=== PATIENT | male | born 1960 | race Caucasian/White ===

== ENCOUNTER 2016-12-19 11:57 | Emergency (ER) | payer OTHER ==
[2016-12-19 12:11] LABS: COLOR YELLOW; LEUKOCYTE ESTERASE,URINE NEGATIVE (NEGATIVE); NITRITE,URINE NEGATIVE (NEGATIVE); PH,URINE 5.5 (5.0-7.5)
[2016-12-19 12:26] LABS: BACTERIA 1+ /hpf (NONE SEEN); MUCUS 1+ /lpf (NONE-1+)
[2016-12-19] MEDS ORDERED: NS 1,000 ML IV ONE (13:19)
--- NOTE | 2016-12-19 13:25 | UCPHY ---
H & P Patient Type: New Chief Complaint Nursing Narrative: LEFT FLANK PAIN STARTED LAST MONDAY, INTERMITTENT INTENSE PAIN, N/V. SEEN AT ON MONDAY AND TRACE BLOOD SEEN IN URINE, DX WITH POSSIBLE KIDNEY STONE. Time Seen by Provider: 12/19/16 12:59 HPI/ROS: This patient complains of left flank pain. He describes onset in the morning with varying degrees of severity but up to 9/10 intensity associated with vomiting on Monday, 3 days prior to arrival. He visit an outlying urgent care clinic where he is found have trace hematuria prescribed Naprosyn and methocarbamol with partial improvement in terms of the pain control but still ongoing symptoms. He has not had any vomiting over the past 2 days has ongoing waxing waning flank pain with no clear exacerbating or alleviating factors. He reports the pain seems to radiate to the left lower quadrant of his belly. His not recalling have this type of pain before. ROS: No fevers or chills. No other constitutional symptoms. HEENT: No complaints pulmonary: No complaints cardiovascular: No lightheadedness GI: Normal bowel movements. : No testicular pain or swelling. No dysuria. 10 point ROS is otherwise negative. Source: Patient, Family (His also provides history.) Exam Limitations: No limitations - Medical/Surgical History PMH: GERD Abdominal hernia with repair Other PMH: GERD, HIGH CHOLESTROL, KIDNEY STONES, BILATERL KNEE SURG, HERNIA REPAIR, LEFT ARM SURG, VOCAL CORD REPAIR - Family History Significant Family History: No pertinent family hx - Social History Smoking Status: Never smoked Alcohol Use: Occasionally Drug Use: None - Physical Exam Exam: General Appearance: Alert, no distress. Eyes: Pupils equal and round no pallor or injection. ENT, Mouth: Mucous membranes moist. Respiratory: There are no retractions, lungs are clear to auscultation. Cardiovascular: Regular rate and rhythm. Gastrointestinal: Abdomen is soft and nontender, no masses, bowel sounds normal. : Mild left epididymal tenderness. No testicular swelling. No urethral discharge. Back: Mild left lateral flank tenderness to percussion. No midline back pain or muscle spasm noted. Neurological: Alert with no focal deficits. Skin: Warm and dry, no rashes. Musculoskeletal: Neck is supple nontender. Extremities are symmetrical, full range of motion. Psychiatric: Mood and affect normal. DIFFERENTIAL DIAGNOSIS: After history and physical exam differential diagnosis was considered for ureteral stone, pyelonephritis, prostatitis, low back strain , viral illness Constitutional: Initial Vital Signs Temperature (C) 36.9 C 12/19/16 12:10 Heart Rate 58 L 12/19/16 12:10 Respiratory Rate 18 12/19/16 12:10 Blood Pressure 124/82 H 12/19/16 12:10 O2 Sat (%) 95 12/19/16 12:10 O2 Delivery Mode Room Air Allergies/Adverse Reactions: isotretinoin [From Accutane] Allergy (Verified 12/19/16 12:19) Home Medications: Medication Instructions Recorded Ondansetron Odt [Zofran Odt] 4 - 8 mg PO Q4PRN PRN #4 tab 12/19/16 Protonix 12/19/16 Simvastatin 12/19/16 Tamsulosin HCl [Flomax 0.4 MG (*)] 0.4 mg PO DAILY #10 cap 12/19/16 oxyCODONE/APAP 5/325 [Percocet 1 - 2 tab PO Q4-6PRN PRN #20 tab 12/19/16 5/325 (*)] Medical Decision Making ED Course/Re-evaluation: IV normal saline bolus Toradol and Zofran with relief Flomax p. o. I reviewed the patient's labs-UA with hematuria and minimal pyuria but no bacteria. Normal CBC and basic metabolic panel I counseled patient regarding ureteral stone. His CT also revealed two small hepatic lesions that will require follow-up imaging in a counseled the patient regarding this. Discussion: Given the relatively small size of this current ureteral stone I suspect this patient will be able to pass as an outpatient. I counseled regarding this. I did provide urology follow-up in case he is not documenting passage of the stone with filtering the urine at home. He also understands the need to have follow-up with his primary care physician to arrange for imaging of the to liver lesions. I also spoke with CORNELIUS Lowe at Dr. Marcus's (PCP) office relating the patient' s need for f/u hepatic imaging with MRI w & w/o contrast as an oupatient. - Data Points Laboratory Results: Laboratory Results 12/19/16 13:40 12/19/16 13:40 Microbiology Results: MICROBIOLOGY 12/19/16 12:27 Urine,Clean Catch Urine Culture - Preliminary Medications Given: Discontinued Medications Sodium Chloride (Ns) 1,000 mls @ 0 mls/hr IV ONCE ONE PRN Reason: Wide Open Stop: 12/19/16 13:20 Last Admin: 12/19/16 13:40 Dose: 1,000 mls Ketorolac Tromethamine (Toradol) 30 mg IVP EDNOW ONE Stop: 12/19/16 13:59 Last Admin: 12/19/16 14:05 Dose: 30 mg Tamsulosin HCl (Flomax) 0.4 mg PO EDNOW ONE Stop: 12/19/16 13:58 Last Admin: 12/19/16 14:05 Dose: 0.4 mg Departure - Departure Disposition: Home, Routine, Self-Care Clinical Impression: Ureteral stone with hydronephrosis, Liver lesion Condition: Good Instructions: Ureteral Stones (ED) Additional Instructions: Plan: Drink plenty fluids Ibuprofen or naproxen anti-inflammatory for pain Tylenol or Percocet in addition if needed. No driving, alcohol or come Percocet Flomax Call the urologist, Dr. Mijares to arrange follow-up appointment for further evaluation Filter your urine to document passage of the stone. Cancel urology appointment if you're able to pass the stone. Call your primary care physician to arrange an outpatient MRI with and without contrast for further evaluation of 2 spots on your liver. Go to the emergency department for any significant worsening despite the treatment plan. Referrals: New Mijares MD [Medical Doctor] - As per Instructions Daron Reese MD, FACG [Medical Doctor] - As per Instructions Shant Marcus [Primary Care Provider] - As per Instructions Stand Alone Forms: Work Excuse Prescriptions: Ondansetron Odt [Zofran Odt] 4 - 8 mg PO Q4PRN PRN #4 tab PRN Reason: Vomiting oxyCODONE/APAP 5/325 [Percocet 5/325 (*)] 1 - 2 tab PO Q4-6PRN PRN #20 tab PRN Reason: Pain Tamsulosin HCl [Flomax 0.4 MG (*)] 0.4 mg PO DAILY #10 cap - PQRS PQRS Measurement: NA
[2016-12-19 13:48] LABS: % IMMATURE GRANULYOCYTES 0.4 % (0.0-1.1); ABSOLUTE IMMATURE GRANULOCYTES 0.03 10^3/uL (0.00-0.10); ADD DIFF? NO; ADD MORPH? NO; ADD SCAN? NO; ATYPICAL LYMPHOCYTE FLAG 0 (0-99); FRAGMENT RBC FLAG 0 (0-99); HEMATOCRIT 40.4 % (40.0-51.0); HEMOGLOBIN 14.8 g/dL (13.7-17.5); LEFT SHIFT FLG 0 (0-99); LIPEMIA HEMOLYSIS FLAG 90 (0-99); MEAN CELL HEMOGLOBIN 31.8 pg (27.9-34.1); MEAN CELL HEMOGLOBIN CONCENTR. 36.6 g/dL (32.4-36.7); MEAN CELL VOLUME 86.9 fL (81.5-99.8); MEAN PLATELET VOLUME 9.9 fL (8.7-11.7); PLATELET CLUMPS FLAG 10 (0-99); PLATELET COUNT 178 10^3/uL (150-400); RED BLOOD CELL COUNT 4.65 10^6/uL (4.40-6.38); RED CELL DISTRIBUTION WIDTH 12.7 % (11.5-15.2)
[2016-12-19] MEDS ORDERED: TAMSULOSIN HCL 0.4 MG CAP PO ONE (13:57)
[2016-12-19] MEDS ORDERED: KETOROLAC 30 MG/1 ML SDV IVP ONE (13:58)
[2016-12-19 14:42] VITALS: BP 117/75; PULSE 54; RESP 14; TEMP 97.7; O2SAT 94
[2016-12-19 14:49] LABS: ANION GAP 15 mEq/L (8-16); CARBON DIOXIDE 22 mEq/l (22-31); CHLORIDE 104 mEq/L (97-110); CREATININE 0.6 mg/dL (0.7-1.3); GLOMERULAR FILTRATION RATE > 60; GLUCOSE 86 mg/dL (70-100); POTASSIUM 4.2 mEq/L (3.5-5.2); SODIUM 141 mEq/L (134-144)
== END 2016-12-19 15:08 | disposition home or self-care (01) ==
LOC: CED 11:57
DX: N21.1 Calculus in urethra (principal); N13.30 Unspecified hydronephrosis; K76.9 Liver disease, unspecified; K21.9 Gastro-esophageal reflux disease without esophagitis; E78.00 Pure hypercholesterolemia, unspecified
CPT/HCPCS: 74176-PO; 80048-PO; 81003-PO; 81015-PO; 85025-PO; 96361-PO; 96374-PO; 99205-PO; G0463-PO; J1885

== ENCOUNTER → 2017-01-24 | Outpatient (CLI) | payer OTHER | LOC: FIMAGING 10:39 | PROVIDERS: ATTEND Specialist | DX: N20.0 Calculus of kidney (principal) ==

== ENCOUNTER 2018-03-06 18:54 | Emergency (ER) | payer OTHER ==
[2018-03-06] MEDS ORDERED: TDAP ADULT 0.5 ML INJ (BOOSTRIX) IM ONE (19:16)
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
[2018-03-06] MEDS ORDERED: IBUPROFEN 600 MG TAB PO ONE (19:53)
[2018-03-06] MEDS ORDERED: HYDROCOD/APAP 5/325 PREPACK#6 BTL TAKEHOME ONE (19:53)
[2018-03-06] MEDS ORDERED: HYDROCODONE/APAP 5/325 TAB PO ONE (19:53)
[2018-03-06] MEDS ORDERED: LET GEL TOPICAL 1 EA SYR TP ONE (19:53)
[2018-03-06 21:56] VITALS: BP 114/54
== END 2018-03-06 21:40 | disposition home or self-care (01) ==
LOC: CED 18:54
DX: S92.902A Unspecified fracture of left foot, initial encounter for closed fracture (principal); S62.600A Fracture of unspecified phalanx of right index finger, initial encounter for closed fracture; S20.311A Abrasion of right front wall of thorax, initial encounter; S40.811A Abrasion of right upper arm, initial encounter; S60.511A Abrasion of right hand, initial encounter; S50.312A Abrasion of left elbow, initial encounter; S80.11XA Contusion of right lower leg, initial encounter; W23.1XXA Caught, crushed, jammed, or pinched between stationary objects, initial encounter
CPT/HCPCS: 73030-PO; 73130-PO; 73590-PO; A4565; L3925; L4386